=== PATIENT | male | born 1960 | race Caucasian/White ===

== ENCOUNTER 2017-09-03 08:45 | Day surgery (SDC) | payer OTHER ==
[2017-08-29 16:19] VITALS: BMI 34.4
[2017-09-03] MEDS ORDERED: PROPOFOL 20 ML ONE ×2 (09:36)
[2017-09-03 10:58] VITALS: TEMP 97.6
[2017-09-03 11:01] VITALS: BP 135/86; PULSE 72
== END 2017-09-03 11:00 | disposition home or self-care (01) ==
LOC: FASU-ENDO 08:45
PROVIDERS: ATTEND Internal Medicine Gastroenterology
PROC: 0DJD8ZZ Inspection of Lower Intestinal Tract, Via Natural or Artificial Opening Endoscopic (ICD-10-PCS; principal; 2017-09-03 10:01)
DX: Z86.010 Personal history of colon polyps (principal); K57.30 Diverticulosis of large intestine without perforation or abscess without bleeding

== ENCOUNTER 2017-10-31 06:52 | Day surgery (SDC) | payer OTHER ==
[2017-10-24 13:26] VITALS: BMI 34.4
[2017-10-31] MEDS ORDERED: LIDOCAINE HCL 2% (20ML MULTI-DOSE VIAL) NR ONE (08:18)
[2017-10-31] MEDS ORDERED: GUM MASTIC/STORAX/MSAL/ALCOHOL 1 DRP DROPSBTL MC ONE (08:19)
[2017-10-31] MEDS ORDERED: PROPOFOL 20 ML ONE (08:19)
[2017-10-31] MEDS ORDERED: MIDAZOLAM HCL 2 MG/2 ML SINGLE DOSE VIAL ONE (08:19)
[2017-10-31] MEDS ORDERED: DEXAMETHASONE SOD PHOSPHATE 4 MG/1 ML VIAL ONE (08:22)
[2017-10-31] MEDS ORDERED: KETOROLAC TROMETHAMINE 30 MG/1 ML VIAL ONE (08:22)
[2017-10-31] MEDS ORDERED: ONDANSETRON 4 MG/2 ML VIAL ONE (08:22)
[2017-10-31] MEDS ORDERED: PROMETHAZINE HCL 25 MG/1 ML VIAL IVPUSH PRN (09:00)
[2017-10-31] MEDS ORDERED: oxyCODONE HCL 5 MG TABLET PO PRN ×2 (09:00)
[2017-10-31] MEDS ORDERED: ONDANSETRON 4 MG/2 ML VIAL IVPUSH PRN (09:00)
[2017-10-31] MEDS ORDERED: LACTATED RINGERS SOLUTION 1,000 ML IV SCH (09:00)
[2017-10-31 09:30] VITALS: BP 132/82; PULSE 74; TEMP 97.9
--- NOTE | 2017-10-31 09:50 | OP ---
DATE OF OPERATION: 10/31/2017 PREOPERATIVE DIAGNOSIS: Right ring trigger-finger. POSTOPERATIVE DIAGNOSIS: Right ring trigger-finger. SURGEON: Naresh German MD ANESTHESIA: Local with sedation. COMPLICATIONS: None. ESTIMATED BLOOD LOSS: Minimal. INDICATIONS FOR PROCEDURE: The patient presented with the above finding, was indicated for operative treatment. The risks, benefits, and alternatives were discussed with the patient at length. Proper informed consent was obtained. PROCEDURE: After proper identification of the patient and the correct operative site, the patient was brought to the operating room and placed supine on the operating room table. All bony prominences were well padded. Sedation was given by the anesthesiologist; local anesthesia was given with 2% lidocaine. Right upper extremity was prepped and draped in the usual sterile fashion. A well-padded tourniquet was placed with a sterile prep. Esmarch bandage used to exsanguinate the right upper extremity. A tourniquet was inflated to 250 mmHg. A longitudinal incision was made over A1 david to the ring finger. Incision was taken sharply through the skin. Blunt and sharp dissection was performed through the subcutaneous tissues. A1 david was identified and divided longitudinally. Patient was asked to flex and extend the finger, and no further triggering was noted. Wound was irrigated with saline and repaired with a 5-0 nylon suture. Sterile dressings were applied. Patient was reversed from sedation and brought to the recovery room in stable condition. He tolerated the procedure well. NARESH GERMAN M.D. [id number]
== END 2017-10-31 09:39 | disposition home or self-care (01) ==
LOC: FASU 06:52
PROVIDERS: ATTEND Orthopaedic Surgery Hand Surgery
PROC: 0LN70ZZ Release Right Hand Tendon, Open Approach (ICD-10-PCS; principal; 2017-10-31 08:45)
DX: M65.341 Trigger finger, right ring finger (principal)